=== PATIENT | female | born 1985 ===

== ENCOUNTER 2024-11-25 02:04 | Emergency (ER) | payer SELFPAY ==
--- NOTE | 2024-11-25 02:04 | ECG_ITS ---
Test Reason : CP Blood Pressure : */* mmHG Vent. Rate : 87 BPM Atrial Rate : 87 BPM P-R Int : 176 ms QRS Dur : 84 ms QT Int : 382 ms P-R-T Axes : 64 18 45 degrees QTcB Int : 459 ms Normal sinus rhythm Possible Left atrial enlargement Possible Anteroseptal infarct , age undetermined Abnormal ECG No previous ECGs available Referred By: Generic ED Physician Electronically Signed By: NANCI RAVI MD
[2024-11-25 02:13] VITALS: BP 148/87; BP 149/88; PULSE 86; RESP 18; O2SAT 98; BMI 21.6
[2024-11-25 02:40] LABS: Hematocrit 22.5 % (37.0-47.0); Imm Gran Abs Auto 0.01 X10*3/uL (0.00-0.03); Imm Gran Pct Auto 0.2 % (0.0-0.4); Lymphocytes Absolute Auto 2.1 X10*3/uL (1.2-4.9); MANUAL DIFF FLAG NO; Mean Corpuscular HGB Conc 31.1 g/dl (31.0-35.0); Mean Corpuscular Hemoglobin 22.6 pg (27.0-33.0); Mean Corpuscular Volume 72.6 fL (80.0-98.0); NRBC Abs Auto 0.000 X10*3/uL (0.0-0.012); NRBC Pct Auto 0.0 /100WBC (0.0-0.2); Platelet Count 253 X10*3/uL (160-400); Red Blood Count 3.10 X10*6/uL (4.20-5.50); White Blood Count 5.1 X10*3/uL (4.8-10.8)
[2024-11-25 02:53] LABS: Alanine Aminotransferase 35 U/L (0-31); Albumin Level 3.9 g/dL (3.5-5.0); Alkaline Phosphatase 81 U/L (39-117); Anion Gap 14 (12-20); Aspartate Amino Transferase 66 U/L (5-31); Blood Urea Nitrogen 9 mg/dL (9-16); Calcium 8.5 mg/dL (8.4-10.2); Carbon Dioxide 26 mmol/L (22-29); Chloride 106 mmol/L (96-108); Creatinine Clr Calc Pharmacy 142.0; Estimated Glomerular Filt Rate > 60; Potassium 3.2 mmol/L (3.3-5.1); Sodium 143 mmol/L (135-145); Total Protein 6.4 g/dL (6.5-8.0)
--- NOTE | 2024-11-25 02:55 | ED.CHESTPAIN ---
HPI - Chest Pain General Chief Complaint: Chest Pain Stated Complaint: possible preeclampsia, stabbing CP Time Seen by Provider: 11/25/24 02:55 History of Present Illness ED Provider: Val BLANCO narrative: The patient is a 39-year-old female who arrives by ambulance complaining of right-sided chest pain. She says that she [place] the ambulance from [place]. She says that when she got into the ambulance her chest pain resolved. She has been dancing earlier in the evening apparently. The patient stated at triage that she was 6 months . She denied nausea and vomiting. She denied vaginal discharge. She denied abdominal pain. The patient says that she recently moved to this area a few days ago from the [facility]. She says that she has received care at [facility] and [facility]. She says that when she was younger she played basketball for [employer] in [place]. She therefore says that she has time to this area. She was vague otherwise about why she had moved back to this area. 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 The patient says that she last had a bowel movement earlier today. She says the color of the stool was green. She denies any black or bloody stools. No vaginal discharge. No vaginal bleeding Related Data Allergies Allergy/AdvReac Type Severity Reaction Status Date / Time No Known Allergies Allergy Verified 11/25/24 02:21 Review of Systems Review of Systems: Yes all other systems are reviewed and are negative [facility] Social History Social History Advance Directives: No Advance Directives Information Provided: No Do you have a plan to hurt others: No Plan Physical Exam Vital Signs: Vital Signs: Last Vital Signs Temp 0 F L 11/25/24 07:15 Pulse 0 L 11/25/24 07:15 Resp 0 L 11/25/24 07:15 BP 00/0 L 11/25/24 07:15 Pulse Ox 99 11/25/24 06:31 O2 Del Method Room Air 11/25/24 06:31 BMI result Body Mass Index 21.6 Const: Other: The patient is a tall, thin, 39-year-old who was awake and alert and who does not seem in acute distress. Orientation/consciousness: patient oriented x3 HEENT: Other: The face is symmetrical. ?Mucous membranes moist. Eyes: Other: Pupils are round equal, conjunctivae are clear, extraocular movements intact Neck: Neck: Yes normal visual inspection, Yes full ROM and Yes no lymphadenopathy Resp: Effort & Inspection: normal respiratory effort and symmetric chest movement Cardio: Rate: regular rate Rhythm: regular rhythm Heart sounds: S1 normal heart sound present and S2 normal heart sound present GI: Other: The abdomen is soft and nontender. I do not appreciate any gravid uterus. Skin: Other: Skin is dry and unremarkable Neuro: General: patient oriented x3, gait normal, tone normal, moves all extremities, no focal motor deficits and CN's II-XI intact bilaterally Extrem: Other: No calf swelling or tenderness, no peripheral edema, no asymmetry Medical Decision Making Medical Decision Making MDM Narrative: The patient is a 39-year-old female [place] of chest pain which resolved as soon as she got into the ambulance. There was no ongoing chest pain. She denied shortness of breath or pleuritic pain. The patient initially indicated that she is 6 months and that she had previously received care in the [facility]. She said that she has been to the [facility] and to [facility]. The patient also mentioned that she has been seen yesterday at [facility]. We were able to obtain records from [facility]. The patient had presented at 05:00 on 11/24/2024. At presentation she complained of high blood pressure and she also said that she was 6 months with twins. She also complained of lower extremity edema. According to the documentation of that visit the patient was seen promptly because of concerned about hypertension in the setting of . However they were unable to visualize a fetus on ultrasound exam and they were unable to obtain a heart rate. They were able to visualize a uterus that seemed to have no intrauterine . Beta hCG was sent and this was negative. According to the [facility] documents the patient had said that she was recently seen at [facility] and was confirmed there to be . It seems that after some discussion the patient was ultimately discharged from the [facility] Emergency room with a diagnosis of pseudocyesis. On arrival by ambulance here this morning the patient again states that she is approximately 6 months with twins. She complained today of right-sided chest pain that resolved at almost as soon as she got out of the ambulance. There was no associated shortness of breath. No pleuritic pain. On physical exam the patient looks quite well. On laboratory exam the patient has a negative serum beta HCG indicating she is not . Additionally she has a very soft, non gravid abdomen. The only finding of concern on her laboratory testing today was a hemoglobin of 7.0. The [facility] testing had indicated a hemoglobin of 7.4. I suspect this is a chronic anemia. She denies any black or bloody stools. She denies any vaginal bleeding. She denies any other reason for loss of blood. I had hoped to get previous laboratory testing from a [facility]. Although she had told [facility] staff that she had been seen at [facility] she told me that she has been at [facility] in [place]. However when we attempted to get records from [facility] they indicated they did not have any records. The patient was not exhibiting any symptoms related to anemia. She was ambulatory without difficulty and she had no shortness of breath. She did not appear ill or unwell. She did not wish to speak with the care team. She denies suicidality or homicidality. The patient ultimately seemed comfortable with the idea of being discharged. She requested that her discharge papers specifically indicate that she tested negative for here. She was advised that her anemia is fairly significant and that she should follow up with any regular providers she has seen in the [place] area for further evaluation of this problem. My overall impression is that the patient has likely some kind of a delusional disorder. Her ethanol level was 82. Her urine drug screen was negative. Her vital signs were stable. She she has no plans to hurt herself or anyone else I did not feel there were grounds on which to hold her on a section 12. She was told that she is quite anemic and this will need follow up. She should return if worse. Lab Data 11/25/24 02:34 11/25/24 02:34 Labs: Lab Results 11/25/24 11/25/24 Range/Units 02:34 03:54 WBC 5.1 (4.8-10.8) X10*3/uL RBC 3.10 L (4.20-5.50) X10*6/uL Hgb 7.0 L* (12.0-16.0) g/dl Hct 22.5 L (37.0-47.0) % MCV 72.6 L (80.0-98.0) fL MCH 22.6 L (27.0-33.0) pg MCHC 31.1 (31.0-35.0) g/dl RDW 21.5 H (11.0-16.0) % Plt Count 253 (160-400) X10*3/uL MPV 8.6 L (9.4-12.3) fL Immature Gran % (Auto) 0.2 (0.0-0.4) % Neut % (Auto) 44.5 L (45-73) % Lymph % (Auto) 41.5 H (20-40) % Mccracken % (Auto) 11.4 H (2-11) % Eos % (Auto) 2.0 (0-4) % Baso % (Auto) 0.4 (0-2) % Lymph # (Auto) 2.1 (1.2-4.9) X10*3/uL Mccracken # (Auto) 0.6 (0.1-1.2) X10*3/uL Eos # (Auto) 0.1 (0.0-0.4) X10*3/uL Baso # (Auto) 0.0 (0.0-0.2) X10*3/uL Abs Immat Gran (auto) 0.01 (0.00-0.03) X10*3/uL Absolute Neuts (auto) 2.3 (2.0-8.3) x10*3/uL Absolute Nucleated RBC 0.000 (0.0-0.012) X10*3/uL Nucleated RBC % (auto) 0.0 (0.0-0.2) /100WBC Sodium 143 (135-145) mmol/L Potassium 3.2 L (3.3-5.1) mmol/L Chloride 106 (96-108) mmol/L Carbon Dioxide 26 (22-29) mmol/L Anion Gap 14 (12-20) BUN 9 (9-16) mg/dL Creatinine 0.64 (0.5-1.4) mg/dL Estim Creat Clear Calc 142.0 Estimated GFR > 60 Random Glucose 87 (60-115) mg/dL Calcium 8.5 (8.4-10.2) mg/dL Total Bilirubin 0.2 (0.0-1.0) mg/dL AST 66 H (5-31) U/L ALT 35 H (0-31) U/L Alkaline Phosphatase 81 (39-117) U/L Troponin I High Sens < 2.7 (<3.5-17.0) ng/L Total Protein 6.4 L (6.5-8.0) g/dL Albumin 3.9 (3.5-5.0) g/dL Beta HCG, Quant < 2 mIU/mL Urine Color Yellow Urine Appearance Clear Urine pH 7.5 (5.0-9.0) Ur Specific [place] 1.010 (1.005-1.025) Urine Protein Negative (Neg-Trace) mg/dL Urine Glucose (UA) Negative (Negative) mg/dL Urine Ketones Negative (Negative) mg/dL Urine Blood Negative (Negative) Urine Nitrite Negative (Negative) Ur Leukocyte Esterase Negative (Negative) Urine Opiates Screen Not Detected (Not Detect) Ur Buprenorphine Scrn Not Detected (Not Detect) ng/mL Ur Oxycodone Screen Not Detected (Not Detect) ng/mL Urine Methadone Screen Not Detected (Not Detect) ng/mL Urine Fentanyl Screen Not Detected (Not Detect) Ur Barbiturates Screen Not Detected (Not Detect) Ur Phencyclidine Scrn Not Detected (Not Detect) Ur Amphetamines Screen Not Detected (Not Detect) U Benzodiazepines Scrn Not Detected (Not Detect) Urine Cocaine Screen Not Detected (Not Detect) U Marijuana (THC) Screen Not Detected (Not Detect) Ethyl Alcohol 82 mg/dL Discharge Plan Discharge Clinical Impression: Chest pain, Anemia Patient Disposition: Home, Self-Care Additional Instructions: Please try to follow up with any regular medical providers you have in the [facility]. The most significant finding on your testing today is that you are fairly anemic. Your anemia similar to the testing that was done at [facility] yesterday. I do not think you are losing blood acutely. Nevertheless I think you need to have this anemia further investigated. Please continue your pills that have iron in them. Your blood test for today is negative. Return to the emergency room if significantly worse. Interventions: ED Discharge Assessment Last Done: 11/25/24 07:15 Discharge Date/Time: 11/25/24 07:17 Print Language: Unable To Collect
[2024-11-25 03:02] LABS: Troponin-I High Sensitivity < 2.7 ng/L (<3.5-17.0)
[2024-11-25 03:14] LABS: Hemoglobin 7.0 g/dl (12.0-16.0)
[2024-11-25 04:01] LABS: Appearance Urine Clear; Glucose Urine UA Negative (Negative); PH 7.5 (5.0-9.0); Specific Gravity - Urine 1.010 (1.005-1.025)
[2024-11-25 04:10] LABS: Cannabinoid Screen Urine Not Detected (Not Detect)
[2024-11-25 04:15] VITALS: BP 151/91; PULSE 90; RESP 16; TEMP 36.8; O2SAT 97
[2024-11-25 06:31] VITALS: BP 153/95; PULSE 86; RESP 16; TEMP 36.8; O2SAT 99
--- NOTE | 2024-11-25 07:06 | PC.NURSE ---
Pt asking for letters stating that she is not and that the hospital is not providing her transportation; when pt was provided with her results and DC and informed verbally that the hospital does not provide free transportation to all pt's, pt called the police department and refsued to leave; security called and pt was escorted off premises with all her belongings
[2024-11-25 07:15] VITALS: BP 00/0; PULSE 0; RESP 0; TEMP -17.7; TEMP 0
== END 2024-11-25 07:17 | disposition home or self-care (01) ==
LOC: HO.ED 07:05
PROVIDERS: Emergency Provider Emergency Medicine
DX: R07.9 Chest pain, unspecified (principal); D64.9 Anemia, unspecified; Z33.1 Pregnant state, incidental; Z79.899 Other long term (current) drug therapy
CPT/HCPCS: 36415; 80053; 80307; 81003; 84484; 84702; 85025; 93005; 99284; 99285

== ENCOUNTER → 2024-11-25 02:04 | Outpatient (BNV) | payer SELFPAY | PROVIDERS: Emergency Provider Emergency Medicine; Visit Provider Internal Medicine Cardiovascular Disease | DX: R94.31 Abnormal electrocardiogram [ECG] [EKG] (principal); R07.89 Other chest pain | CPT/HCPCS: 93010 ==